=== PATIENT | female | born 2000 | race Two or more races ===

== ENCOUNTER 2022-11-03 09:42 | Emergency (ER) | payer OTHER ==
[~2022-11-03] VITALS: Ht 154.9 cm; Wt 47.6 kg
[2022-11-03 09:53] VITALS: BP 118/82; PULSE 112; RESP 20; TEMP 98.7; O2SAT 96
[2022-11-03 10:11] VITALS: O2SAT 96
[2022-11-03 11:43] LABS: APPEARANCE,URINE CLEAR (CLEAR); BILIRUBIN,URINE NEGATIVE (NEGATIVE); BLOOD, URINE TRACE-I (NEGATIVE); COLOR,URINE YELLOW (YELLOW); LEUKOCYTE ESTERASE ,URINE 1+ (NEGATIVE); NITRITE, URINE NEGATIVE (NEGATIVE); PH,URINE 6.5 (5.0-9.0); PROTEIN,URINE NEGATIVE (NEGATIVE); UGLUCOSE NEGATIVE (NEGATIVE); UROBILINOGEN,URINE 0.2 EU/dL (0.2 - 1)
[2022-11-03 11:56] LABS: BACTERIA,URINE 0-2 /HPF (None Seen); RBC,URINE 0-5 /HPF (0-5); SQUAMOUS EPITHELIAL CELL,UR 4-10 (MOD) /LPF (0-3 (FEW))
[2022-11-03 12:34] LABS: BASOPHILS # (AUTO) 0.1 K/uL (0.00-0.22); BASOPHILS % (AUTO) 0.6 % (0.0-2.0); EOSINOPHILS % (AUTO) 0.1 % (0.0-4.0); HEMATOCRIT 34.1 % (36-48); HEMOGLOBIN 11.2 g/dL (12.0-16.0); LYMPHOCYTES # (AUTO) 1.2 K/uL (2.5-16.5); LYMPHOCYTES % (AUTO) 12.3 % (20.5-51.1); MEAN CORPUSCULAR HEMOGLOBIN 26 pg (27-31); MEAN CORPUSCULAR HGB CONC 33 g/dL (33-37); MEAN CORPUSCULAR VOLUME 80.2 fL (80-94); MONOCYTES % (AUTO) 10.1 % (1.7-9.3); NEUTROPHILS # (AUTO) 7.3 K/uL (1.8-7.7); NEUTROPHILS % (AUTO) 76.9 % (42.2-75.2); PLATELET COUNT (AUTO) 497 K/uL (140-450); RED BLOOD CELL COUNT(AUTO) 4.26 MIL/uL (4.20-5.40); RED CELL DISTRIBUTION WIDTH 15.8 % (11.6-13.7); WHITE BLOOD COUNT (AUTO) 9.5 K/uL (4.5-11.0)
[2022-11-03 12:48] LABS: ANION GAP 12.2 (8-16); CALCIUM 8.7 mg/dL (8.5-10.1); CARBON DIOXIDE 27.3 mmol/L (21-32); CREATININE 0.6 mg/dL (0.6-1.3); POTASSIUM 3.5 mmol/L (3.5-5.1); TOTAL BILIRUBIN 0.5 mg/dL (0.0-1.0); TOTAL PROTEIN, SERUM 7.5 g/dL (6.4-8.2)
[2022-11-03] MEDS ORDERED: POLYETHYLENE GLYCOL 17 GM/PKT PO ONE (13:35)
[2022-11-03] MEDS ORDERED: CEPH-588 PO (15:34)
[2022-11-03] MEDS ORDERED: MIRABULK PO (15:34)
[2022-11-03 15:48] VITALS: BP 120/78; PULSE 110; RESP 20; TEMP 98.7; O2SAT 97
== END 2022-11-03 15:48 | disposition home or self-care (01) ==
LOC: MED 09:42
DX: K59.00 Constipation, unspecified (principal); N39.0 Urinary tract infection, site not specified; Z79.899 Other long term (current) drug therapy
CPT/HCPCS: 36415; 74018; 80053; 81001; 81025; 83690; 85025; 87086; 99284; Q0092

== ENCOUNTER 2023-09-06 01:00 | Emergency (ER) | payer OTHER ==
[~2023-09-06] VITALS: Ht 157.5 cm; Wt 51.3 kg
[~2023-09-06 01:00] MED LIST: CEPH-588 PO; MIRABULK PO
[2023-09-06 01:05] VITALS: BP 113/73; PULSE 76; RESP 16; TEMP 97.4; O2SAT 98
[2023-09-06 01:21] VITALS: O2SAT 98
[2023-09-06] MEDS: TETRACAINE HCL/PF 0.5% OPTH 4 ML BTL OP ONE (01:45)
[2023-09-06] MEDS: FLUORESCEIN OPTH STRIP 1 MG OP ONE (01:45)
[2023-09-06 06:40] VITALS: BP 98/76; PULSE 78; RESP 18; TEMP 98.2; O2SAT 99
== END 2023-09-06 06:40 | disposition home or self-care (01) ==
LOC: MED 01:00
DX: G89.29 Other chronic pain (principal); H57.12 Ocular pain, left eye; Z79.2 Long term (current) use of antibiotics; Z79.899 Other long term (current) drug therapy; Z86.69 Personal history of other diseases of the nervous system and sense organs
CPT/HCPCS: 99283